=== PATIENT | male | born 1950 | race Caucasian/White ===

== ENCOUNTER 2018-04-28 09:47 | Outpatient (CLI) | payer MEDICARE, OTHER ==
[2018-04-28 10:55] LABS: CALCIUM, SERUM 9.1 mg/dL (8.5-10.1); CREATININE 1.1 mg/dL (0.6-1.3); POTASSIUM 4.4 mmol/L (3.5-5.1)
[2018-04-29] MEDS ORDERED: METOPROLOL TARTRATE INJ 5 MG/5 ML AMPUL ONE (11:10)
[2018-04-29] MEDS ORDERED: VERAPAMIL HCL IV 5 MG/2 ML VIAL ONE (11:46)
== END 2018-04-28 23:59 | disposition home or self-care (01) ==
LOC: CARD 09:47
PROVIDERS: ATTEND Internal Medicine Interventional Cardiology
DX: I65.23 Occlusion and stenosis of bilateral carotid arteries (principal); I10 Essential (primary) hypertension
CPT/HCPCS: 36415; 80048-TC; 93880-TC; J3490

== ENCOUNTER 2018-04-29 09:49 | Outpatient (CLI) | payer MEDICARE, OTHER ==
[2018-04-29] MEDS ORDERED: IOHEXOL-350 100 ML VIAL IV ONE (11:11)
[2018-04-29] MEDS ORDERED: CT SWABBABLE VALVE TRANS SET 1 EA INFUS.SET MC ONE (11:12)
[2018-04-29] MEDS ORDERED: IV NS 0.9% 500 ML IV ONE (11:12)
== END 2018-04-29 23:59 ==
LOC: CT 09:49
PROVIDERS: ATTEND Internal Medicine Interventional Cardiology
DX: I70.0 Atherosclerosis of aorta (principal); J81.1 Chronic pulmonary edema
CPT/HCPCS: 75574; J7040; Q9967

== ENCOUNTER 2018-05-06 08:26 | Outpatient (CLI) | payer MEDICARE, OTHER ==
[2018-05-06] MEDS ORDERED: REGADENOSON 0.4 MG/5 ML DISP.SYRIN IVP ONE (09:30)
== END 2018-05-06 23:59 | disposition home or self-care (01) ==
LOC: NM 08:26
PROVIDERS: ATTEND Internal Medicine Interventional Cardiology
DX: I10 Essential (primary) hypertension (principal); I25.10 Atherosclerotic heart disease of native coronary artery without angina pectoris
CPT/HCPCS: 78452; A9502; J2785